=== PATIENT | male | born 1940 | race Caucasian/White ===

== ENCOUNTER → 2017-04-06 | Outpatient (CLI) | payer OTHER ==
[~2017-04-06] MED LIST: APIX5TAB PO; DABI150C PO; LOSA1TAB17 PO; LOSA50TA6 PO; MULT-412 PO; OMEP-110 PO; OXYC5CAP2 PO; TEST5GEL18 TP
[2017-04-06 10:26] LABS: ASPARTATE AMINO TRANSFERASE 20 U/L (15-37); BLOOD UREA NITROGEN 19 mg/dL (7-18)
== END | disposition home or self-care (01) ==
LOC: STAR 09:04
PROVIDERS: ATTEND Internal Medicine
DX: Z01.818 Encounter for other preprocedural examination (principal); R94.31 Abnormal electrocardiogram [ECG] [EKG]; K22.70 Barrett's esophagus without dysplasia; I10 Essential (primary) hypertension; I48.91 Unspecified atrial fibrillation; K21.9 Gastro-esophageal reflux disease without esophagitis; M19.90 Unspecified osteoarthritis, unspecified site; M81.0 Age-related osteoporosis without current pathological fracture
CPT/HCPCS: 36415; 80053; 93005

== ENCOUNTER 2017-04-14 07:34 | Day surgery (SDC) | payer OTHER ==
[~2017-04-14] VITALS: Ht 195.6 cm; Wt 100.5 kg
[2017-04-14] MEDS ORDERED: LACTATED RINGERS 1,000 ML IV SCH (08:49)
[2017-04-14] MEDS ORDERED: LIDOCAINE 1%, 2ML ONE (08:53)
[2017-04-14] MEDS ORDERED: LIDOCAINE 1%, 2ML SQ PRN (09:00)
[2017-04-14 09:07] VITALS: BP 155/95
[2017-04-14] MEDS ORDERED: PROPOFOL 10 MG/ML, 50ML ONE (10:17)
[2017-04-14] MEDS ORDERED: ESMOLOL 100 MG/10 ML ONE (10:17)
[2017-04-14] MEDS ORDERED: PROPOFOL 10 MG/ML, 20ML ONE (10:17)
[2017-04-14] MEDS ORDERED: FENTANYL PF 100 MCG/2ML ONE (10:32)
== END 2017-04-14 11:55 ==
LOC: OUT 07:34
PROVIDERS: ATTEND Internal Medicine
DX: K22.70 Barrett's esophagus without dysplasia (principal); K44.9 Diaphragmatic hernia without obstruction or gangrene; K29.50 Unspecified chronic gastritis without bleeding; K21.9 Gastro-esophageal reflux disease without esophagitis; I48.91 Unspecified atrial fibrillation; I10 Essential (primary) hypertension
CPT/HCPCS: 43239; 43270; 88305; 88342; J2704; J3010; J3490; J7120; G0461

== ENCOUNTER → 2018-08-23 | Outpatient (CLI) | payer MEDICARE ==
[~2018-08-23] MED LIST changes: -LOSA1TAB17 PO; +LOSA1TAB22 PO; -LOSA50TA6 PO; +LOSA50TA7 PO
[2018-08-23 11:52] LABS: ANION GAP 3 mmol/L (5-15); CALCIUM 9.2 mg/dL (8.5-10.1); CHLORIDE 109 mmol/L (98-107)
[2018-08-23 11:56] LABS: ALANINE AMINOTRANSFERASE 18 U/L (12-78); ALKALINE PHOSPHATASE 49 U/L (45-117); BILIRUBIN,TOTAL 0.6 mg/dL (0.2-1.0); CREATININE 1.18 mg/dL (0.7-1.3); TOTAL PROTEIN 6.9 g/dL (6.4-8.2)
== END | disposition home or self-care (01) ==
LOC: STAR 10:34
PROVIDERS: ATTEND Internal Medicine
DX: Z01.818 Encounter for other preprocedural examination (principal); I48.91 Unspecified atrial fibrillation
CPT/HCPCS: 36415; 80053; 93005

== ENCOUNTER 2018-08-31 07:05 | Day surgery (SDC) | payer MEDICARE ==
[~2018-08-31] VITALS: Ht 195.6 cm; Wt 98.6 kg
[~2018-08-31 07:05] MED LIST changes: +LOSA50TA14 PO; -LOSA50TA7 PO
[2018-08-31 07:30] VITALS: BP 145/84
[2018-08-31] MEDS ORDERED: LACTATED RINGERS 1,000 ML IV SCH (07:33)
[2018-08-31] MEDS ORDERED: MIDAZOLAM 1 MG/ML, 2ML ONE (08:55)
[2018-08-31] MEDS ORDERED: FENTANYL PF 100 MCG/2ML ONE (08:55)
[2018-08-31] MEDS ORDERED: PROPOFOL 10 MG/ML, 20ML ONE (08:55)
[2018-08-31] MEDS ORDERED: OXYcodone 5 MG/5 ML ORAL.SOL UDC PO PRN (09:30)
[2018-08-31] MEDS ORDERED: hydrALAzine 20 MG/ML, 1ML IV PRN (09:30)
[2018-08-31] MEDS ORDERED: FENTANYL PF 100 MCG/2ML IV PRN (09:30)
[2018-08-31] MEDS ORDERED: MEPERIDINE/PF 25MG/0.5ML IVPush PRN (09:30)
[2018-08-31] MEDS ORDERED: HALOPERIDOL 5 MG/ML IV PRN (09:30)
[2018-08-31] MEDS ORDERED: HYDROmorphone 2 MG/ML, 1ML IVPush PRN (09:30)
[2018-08-31] MEDS ORDERED: PROMETHAZINE 25 MG/ML, 1ML IV PRN (09:30)
== END 2018-08-31 11:10 | disposition home or self-care (01) ==
LOC: OUT 07:05
PROVIDERS: ATTEND Internal Medicine
DX: K22.70 Barrett's esophagus without dysplasia (principal); K44.9 Diaphragmatic hernia without obstruction or gangrene; K31.7 Polyp of stomach and duodenum; Q45.8 Other specified congenital malformations of digestive system; I25.10 Atherosclerotic heart disease of native coronary artery without angina pectoris; K21.9 Gastro-esophageal reflux disease without esophagitis
CPT/HCPCS: 43239; 43270; 88305; J2250; J2704; J3010; J7120

== ENCOUNTER 2019-03-23 09:51 | Outpatient (CLI) | payer MEDICARE | END 2019-03-23 23:59 | disposition home or self-care (01) | LOC: STAR 09:51 | PROVIDERS: ATTEND Internal Medicine | DX: Z01.818 Encounter for other preprocedural examination (principal); K22.70 Barrett's esophagus without dysplasia; I48.91 Unspecified atrial fibrillation | CPT/HCPCS: 93005 ==

== ENCOUNTER → 2020-04-05 | Outpatient (CLI) | payer MEDICARE ==
[~2020-04-05] MED LIST changes: +VIT1CAPS11 PO
[2020-04-05 16:43] LABS: ALANINE AMINOTRANSFERASE 22 U/L (12-78); ALBUMIN 3.9 g/dL (3.4-5.0); ANION GAP 5 mmol/L (5-15); CHLORIDE 111 mmol/L (98-107)
[2020-04-05 16:46] LABS: ALKALINE PHOSPHATASE 43 U/L (45-117); BILIRUBIN,TOTAL 0.6 mg/dL (0.2-1.0); CREATININE 1.22 mg/dL (0.7-1.3); TOTAL PROTEIN 6.8 g/dL (6.4-8.2)
== END | disposition home or self-care (01) ==
LOC: STAR 14:29
PROVIDERS: ATTEND Internal Medicine Geriatric Medicine
DX: Z01.818 Encounter for other preprocedural examination (principal); Z20.828 Contact with and (suspected) exposure to other viral communicable diseases; K22.70 Barrett's esophagus without dysplasia
CPT/HCPCS: 36415; 80053; 87635; 93005

== ENCOUNTER 2020-04-09 06:41 | Day surgery (SDC) | payer MEDICARE ==
[~2020-04-09] VITALS: Ht 195.6 cm; Wt 95.3 kg
[2020-04-09] MEDS ORDERED: CHLORHEXIDINE 15 ML UDC MM ONE (07:30)
[2020-04-09] MEDS ORDERED: LACTATED RINGERS 1,000 ML IV SCH (07:31)
[2020-04-09 07:32] VITALS: BP 162/70
[2020-04-09] MEDS ORDERED: FENTANYL PF 100 MCG/2ML ONE (08:44)
[2020-04-09] MEDS ORDERED: MIDAZOLAM 1 MG/ML, 2ML ONE (08:44)
[2020-04-09] MEDS ORDERED: PROPOFOL 10 MG/ML, 100ML IV ONE (08:48)
[2020-04-09] MEDS ORDERED: OXYcodone 5 MG/5 ML ORAL.SOL UDC PO PRN (09:00)
[2020-04-09] MEDS ORDERED: FENTANYL PF 100 MCG/2ML IV PRN (09:00)
[2020-04-09] MEDS ORDERED: MEPERIDINE/PF 25MG/0.5ML IVPush PRN (09:00)
[2020-04-09] MEDS ORDERED: ACETAMINOPHEN 325 MG TABLET PO PRN (09:00)
[2020-04-09] MEDS ORDERED: ONDANSETRON 2MG/ML, 2ML IVPush PRN (09:00)
== END 2020-04-09 11:00 | disposition home or self-care (01) ==
LOC: OR 06:41 → OUT 11:00
PROVIDERS: ATTEND Internal Medicine Geriatric Medicine
DX: K22.70 Barrett's esophagus without dysplasia (principal); K21.9 Gastro-esophageal reflux disease without esophagitis; I10 Essential (primary) hypertension; I48.91 Unspecified atrial fibrillation; M19.90 Unspecified osteoarthritis, unspecified site; Z79.01 Long term (current) use of anticoagulants; Z79.899 Other long term (current) drug therapy; Z86.010 Personal history of colon polyps; Z87.891 Personal history of nicotine dependence; Z91.018 Allergy to other foods; Z96.652 Presence of left artificial knee joint; Z96.642 Presence of left artificial hip joint; Z98.890 Other specified postprocedural states; Z82.49 Family history of ischemic heart disease and other diseases of the circulatory system
CPT/HCPCS: 43270; J2250; J2704; J3010; J7120

== ENCOUNTER → 2020-07-11 | Outpatient (CLI) | payer MEDICARE ==
[~2020-07-11] MED LIST changes: +LOSA100T14 PO
[2020-07-11 12:23] LABS: ALANINE AMINOTRANSFERASE 20 U/L (12-78); ALBUMIN 3.9 g/dL (3.4-5.0); ANION GAP 2 mmol/L (5-15); CHLORIDE 110 mmol/L (98-107); CREATININE 1.09 mg/dL (0.7-1.3)
[2020-07-11 12:25] LABS: ALKALINE PHOSPHATASE 54 U/L (45-117); BILIRUBIN,TOTAL 0.5 mg/dL (0.2-1.0); TOTAL PROTEIN 6.7 g/dL (6.4-8.2)
== END | disposition home or self-care (01) ==
LOC: STAR 10:53
PROVIDERS: ATTEND Internal Medicine Geriatric Medicine
DX: Z01.812 Encounter for preprocedural laboratory examination (principal); Z20.828 Contact with and (suspected) exposure to other viral communicable diseases; K22.70 Barrett's esophagus without dysplasia; I48.91 Unspecified atrial fibrillation; I21.09 ST elevation (STEMI) myocardial infarction involving other coronary artery of anterior wall
CPT/HCPCS: 36415; 80053; 87635; 93005

== ENCOUNTER 2020-07-16 06:36 | Day surgery (SDC) | payer MEDICARE ==
[~2020-07-16] VITALS: Ht 195.6 cm; Wt 95.0 kg
[2020-07-16] MEDS ORDERED: CHLORHEXIDINE 15 ML UDC MM STA (07:04)
[2020-07-16 07:05] VITALS: BP 146/74
[2020-07-16] MEDS ORDERED: ACETAMINOPHEN 325 MG TABLET PO PRN (07:30)
[2020-07-16] MEDS ORDERED: OXYcodone 5 MG/5 ML ORAL.SOL UDC PO PRN (07:30)
[2020-07-16] MEDS ORDERED: LABETALOL 5MG/ML, 20ML IV PRN (07:30)
[2020-07-16] MEDS ORDERED: PROMETHAZINE 25 MG/ML, 1ML IVPush PRN (07:30)
[2020-07-16] MEDS ORDERED: ONDANSETRON 2MG/ML, 2ML IVPush PRN (07:30)
[2020-07-16] MEDS ORDERED: LACTATED RINGERS 1,000 ML IV SCH (07:30)
[2020-07-16] MEDS ORDERED: hydrALAzine 20 MG/ML, 1ML IV PRN (07:30)
[2020-07-16] MEDS ORDERED: EPHEDRINE 50 MG/ML, 1ML IVPush PRN (07:30)
[2020-07-16] MEDS ORDERED: FENTANYL PF 100 MCG/2ML IV PRN (07:30)
[2020-07-16] MEDS ORDERED: PROPOFOL 10 MG/ML, 20ML ONE ×2 (09:24)
== END 2020-07-16 10:45 | disposition home or self-care (01) ==
LOC: OUT 06:36
PROVIDERS: ATTEND Internal Medicine Geriatric Medicine
DX: K22.719 Barrett's esophagus with dysplasia, unspecified (principal); K44.9 Diaphragmatic hernia without obstruction or gangrene; K21.9 Gastro-esophageal reflux disease without esophagitis; I10 Essential (primary) hypertension; I48.91 Unspecified atrial fibrillation; Z79.01 Long term (current) use of anticoagulants; Z79.899 Other long term (current) drug therapy
CPT/HCPCS: 43270; J2704